=== PATIENT | male | born 1965 | race Caucasian/White ===

== ENCOUNTER 2021-08-12 17:45 | Emergency (ER) | payer OTHER, SELFPAY ==
[2021-08-12 17:49] VITALS: BP 120/89; PULSE 78; RESP 16; TEMP 36.2; O2SAT 98
[2021-08-12] MEDS: Doxycycline Hyclate 100 MG CAP 200 MG PO (18:13)
--- NOTE | 2021-08-12 18:14 | ED.GENADUL_ITS ---
Discharge Plan Disposition Patient Disposition: HOME Condition: Good Discharge Details Clinical Impression: Tick bite Primary Care Provider: Unknown,Unknown ED Provider: Mattie Nguyen Home Meds and New Rx's Prescriptions: Continued Lulu-D 24 Hour 180-240 mg Tablet Extended Release 24 Hr 180 tab PO DAILY RF: 0 Discharge Instructions Instructions: Tick Bite (ED) Additional Instructions: You were treated prophylactically for Lyme disease with 200 doxycycline You have a rash surrounding the tick bite at this time, this is from the antibiotics to take in [place] is not any erythema migrans lesions, or the bull's-eye lesion that wer look For Please be reassessed should you develop a bull's-eye lesion, fever, chills, drainage pain, or flulike symptoms Medical Decision Making as the tick is engorged, I did treat with prophylactic dose of 200 mg of doxycycline I discussed return precautions HPI General Mode of arrival: ambulatory . Date/Time Provider Initiated Documentation: 08/12/21 17:52 . Limitations to Documentation: no limitations . Information obtained by: patient . HPI Narrative: This 56-year-old male presents with tick bite. He noticed The Attached tick today. Denies any add itional complaints. Unsure how long the tick was actually attached. Related Data Home Medications Medication Instructions Recorded Confirmed Lulu-D 24 Hour 180 tab PO DAILY 08/12/21 08/12/21 Allergies Allergy/AdvReac Type Severity Reaction Status Date / Time No Known Allergies Allergy Unverified 08/12/21 17:56 General Stated Complaint: RashLesion BERNADINE: 4 Review of Systems Narrative: review of systems obtained x3 and negative aside from indication in HPI PFSH Social History Smoking/Tobacco Use Status: Never Smoking risk assessment performed?: Yes Alcohol Intake: current Alcohol Intake frequency: a few times a week Alcohol type: beer, wine and hard liquor Substance use type: does not use Do you feel safe at home: Yes Do you feel safe in your relationship?: Yes Exam Const General: cooperative, comfortable and no acute distress Skin Full body images: 1. Site of tick attachment, surrounding erythema Course Vital Signs Vital signs: Vital Signs Temperature 36.2 C L 08/12/21 17:49 Pulse 78 08/12/21 17:49 Respiratory Rate 16 08/12/21 17:49 Blood Pressure 120/89 08/12/21 17:49 Pulse Oximetry 98 08/12/21 17:49 Temperature 36.2 C L 08/12/21 17:49 Temperature Source Tympanic 08/12/21 17:49 Pulse 78 08/12/21 17:49 Respiratory Rate 16 08/12/21 17:49 Respiratory Effort Non-Labored 08/12/21 17:54 Blood Pressure 120/89 08/12/21 17:49 Blood Pressure Position Sitting 08/12/21 17:49 Pulse Oximetry 98 08/12/21 17:49 Oxygen Delivery Method Room Air 08/12/21 17:49 Oxygen Flow Rate 0 08/12/21 17:49 Pain Level 3 08/12/21 17:49 PAWSS Have you Been Recently Intoxicated or Drunk Within the Last 30 days?: No Have you Ever Experienced Previous Episodes of Alcohol Withdrawal?: No Have you ever Experienced Withdrawal Seizures?: No Have you ever Experienced Delirium Tremens(DT)s?: No Have you ever undergone Alcohol Rehabilitation Treatment (i.e, inpt ot outpatient treatment programs)?: No Have you ever Experienced Blackouts?: No Have you ever Combined Alcohol with other Downers within the last 90 days?: No Have you ever Combined Alcohol with any other Substance of Abuse during the last 90 days?: No Positive Blood Alcohol level on Presentation? [PCS.BAL]: No Evidence of Increased Autonomic Activity (i.e. HR>120, tremor, sweating, agitation, nausea)?: No Result: 0
== END 2021-08-12 18:18 | disposition home or self-care (01) ==
PROVIDERS: Emergency Provider Physician Assistant
DX: S30.861A Insect bite (nonvenomous) of abdominal wall, initial encounter (principal); W57.XXXA Bitten or stung by nonvenomous insect and other nonvenomous arthropods, initial encounter
CPT/HCPCS: 99283; 99282